=== PATIENT | male | born 1995 | race Two or more races ===

== ENCOUNTER 2019-05-04 19:16 | Emergency (ER) | payer MEDICAID ==
[~2019-05-04] VITALS: Ht 172.7 cm; Wt 90.7 kg
[2019-05-04 19:34] VITALS: BP 138/86
== END 2019-05-04 22:12 | disposition left against medical advice (07) ==
LOC: EDBD 19:16 → ER 19:19
DX: S01.01XA Laceration without foreign body of scalp, initial encounter (principal); Z53.21 Procedure and treatment not carried out due to patient leaving prior to being seen by health care provider; V43.52XA Car driver injured in collision with other type car in traffic accident, initial encounter; Y93.89 Activity, other specified; Y92.89 Other specified places as the place of occurrence of the external cause; Y99.8 Other external cause status; R51 Headache
CPT/HCPCS: 70450